=== PATIENT | female | born 1995 | race American Indian/Alaskan Native ===

== ENCOUNTER 2022-04-18 23:00 | Emergency (ER) | payer SELFPAY ==
[2022-04-19] MEDS ORDERED: diphenhydrAMINE 25 MG CAP PO ONE (00:24)
[2022-04-19 00:53] LABS: Basophils # (Auto) 0.1 K/mm3 (0.0-0.1); Basophils % (Auto) 0.6 % (0.0-1.8); Eosinophils # (Auto) 0.2 K/mm3 (0.0-0.4); Eosinophils % (Auto) 1.3 % (0.0-4.3); Hematocrit 35.6 % (30.3-42.9); Hemoglobin 11.7 gm/dl (10.1-14.3); Lymphocytes % (Auto) 17.1 % (13.4-35.0); Mean Corpuscular HGB Conc 33 % (30-34); Mean Corpuscular Volume 86 fl (79-97); Monocytes # (Auto) 0.9 K/mm3 (0.0-0.8); Monocytes % (Auto) 7.5 % (0.0-7.3); Platelet Count 299 K/mm3 (140-440); Red Blood Count 4.13 M/mm3 (3.65-5.03); Red Cell Distribution Width 13.2 % (13.2-15.2)
[2022-04-19 01:04] LABS: BUN/Creatinine Ratio 10; Blood Urea Nitrogen 10 mg/dL (7-17); Calcium 8.8 mg/dL (8.4-10.2); Hemolysis Index 3
[2022-04-19 01:58] LABS: Bacteria,Urine 1+ /HPF (Negative); Color,Urine Yellow (Yellow); Mucus,Urine 3+ /HPF
[2022-04-19 02:03] LABS: Ictotest,Urine Negative (Negative)
[2022-04-19 02:05] LABS: Amphetamine Screen,Urine Negative; Benzodiazepines Screen,Urine Negative; Cocaine Screen,Urine Negative; Methadone Screen,Urine Negative; Opiate Screen,Urine Negative
[2022-04-19 02:30] LABS: Cannabinoid Screen,Urine Positive
--- NOTE | 2022-04-19 06:08 | Emergency Department Report ---
ED General Adult HPI - General Chief complaint: Psych Stated complaint: MH PUI?: No Time Seen by Provider: 04/19/22 05:48 Source: patient Mode of arrival: Ambulatory Limitations: No Limitations - History of Present Illness Initial comments: This is a pleasant 26-year-old female with medical history of paranoid schizophrenia, bipolar; came in today with concerns of not sleeping for the past 2 days and also itching all over for the past 2 months. Patient also endorsed suicidal homicidal ideation but denies any current plan. Patient said that she is having visual also auditory hallucination but they are not giving her comma nds. Patient said that she is not taking her Risperdal as she is supposed to. Patient current denies any other symptoms denies fever chill night sweat dizziness blurred vision lightheadedness headache tinnitus ear pain runny nose sore throat loss of taste loss smell chest pain palpitation short breath cough abdominal pain nausea vomiting diarrhea constipation joint pain muscle pain new rash and heat or cold intolerance. - Related Data Allergies Allergy/AdvReac Type Severity Reaction Status Date / Time No Known Allergies Allergy Verified 04/19/22 00:23 ED Review of Systems ROS: Stated complaint: MH Other details as noted in HPI Comment: All other systems reviewed and negative Constitutional: no symptoms reported Eyes: as per HPI ENT: as per HPI Respiratory: no symptoms reported, see HPI Cardiovascular: as per HPI Endocrine: no symptoms reported, see HPI Gastrointestinal: as per HPI Genitourinary: as per HPI Musculoskeletal: as per HPI Skin: as per HPI Neurological: as per HPI Psychiatric: anxiety, auditory hallucinations, visual hallucinations, homicidal thoughts, suicidal thoughts Hematological/Lymphatic: as per HPI ED Past Medical Hx - Past Medical History Previous Medical History?: Yes Hx Psychiatric Treatment: Yes (PARANOIA SCHIZOPHRENIA, BIPOLAR) - Surgical History Past Surgical History?: Yes - Social History Smoking Status: Unknown if ever smoked ED Physical Exam - General Limitations: No Limitations General appearance: alert, in no apparent distress - Head Head exam: Present: atraumatic, normocephalic, normal inspection - Eye Eye exam: Present: normal appearance, PERRL, EOMI Pupils: Present: normal accommodation - ENT ENT exam: Present: normal exam, mucous membranes moist - Neck Neck exam: Present: normal inspection, full ROM - Respiratory Respiratory exam: Present: normal lung sounds bilaterally - Cardiovascular Cardiovascular Exam: Present: regular rate, normal rhythm, normal heart sounds - GI/Abdominal GI/Abdominal exam: Present: soft - Extremities Exam Extremities exam: Present: normal inspection, full ROM, normal capillary refill - Back Exam Back exam: Present: normal inspection, full ROM - Neurological Exam Neurological exam: Present: alert, oriented X3, CN II-XII intact - Psychiatric Psychiatric exam: Present: manic, homicidal ideation, suicidal ideation ED Course Vital Signs 04/19/22 00:17 Temperature 98.3 F Pulse Rate 104 H Respiratory 18 Rate Blood Pressure 121/75 O2 Sat by Pulse 99 Oximetry - Reevaluation(s) Reevaluation #1: 04/19/22 06:08 Patient is being medically clear and is ready for behavioral health evaluation and also for the recommendation. ED Medical Decision Making - Lab Data Result diagrams: 04/19/22 00:26 04/19/22 00:26 Critical care attestation.: If time is entered above; I have spent that time in minutes in the direct care of this critically ill patient, excluding procedure time. ED Disposition Clinical Impression: Tetrahydrocannabinol (THC) dependence, Suicidal ideations, Homicidal ideations, Paranoid ideation Condition: Stable
--- NOTE | 2022-04-19 14:11 | Consultation ---
History of Present Illness - Reason for Consult Consult date: 04/19/22 Reason for consult: mental health evaluation - History of Present Psychiatric Illness ED NOTE: This is a pleasant 26-year-old female with medical history of paranoid schizophrenia, bipolar; came in today with concerns of not sleeping for the past 2 days and also itching all over for the past 2 months. Patient also endorsed suicidal homicidal ideation but denies any current plan. Patient said that she is having visual also auditory hallucination but they are not giving her command s. Patient said that she is not taking her Risperdal as she is supposed to. Patient current denies any other symptoms denies fever chill night sweat dizziness blurred vision lightheadedness headache tinnitus ear pain runny nose sore throat loss of taste loss smell chest pain palpitation short breath cough abdominal pain nausea vomiting diarrhea constipation joint pain muscle pain new rash and heat or cold intolerance. Patient is a 26 year-old female with psychiatric history of paranoid schizophrenia and bipolar disorder. Psych consulted for mental health evaluation. The patient was seen today. Patient was alert and oriented x3 and cooperative throughout the interview. Patient reports she is here because "I have schizophrenia and I have been having auditory and visual hallucinations." Patient reports last taking risperidone 2 weeks ago and reports it "made me pass out." Patient reports endorses thought-broadcasting, hearing voices telling her to walk to [place], and "telecommunication" "with the [employer]." Patient reports visual hallucinations of "seeing people that I crossed in the past." Patient reports feeling "extremely sick," and reports feeling of "lightning rods in my uterus and anus." Patient reports 2 previous suicide attempts and reports "I wrote my will yesterday," but denies suicidal ideation recently. PAST PSYCHIATRIC HISTORY: Diagnoses: schizophrenia, bipolar disorder Suicide attempts or Self-harm behavior: 2x attempts Prior psychiatric hospitalizations: Yes Substance Abuse history: Marijuana, cigarettes Previous psychiatric medications tried: Risperidone, Olanzapine Outpatient treatment: Yes Family Psychiatric History: Mother- depression, Brother- PTSD SOCIAL HISTORY Marital Status: Single Living Arrangements: Homeless 3 years Employment Status: Unemployed Access to guns/weapons: Denies Education: Master's degree History of Abuse: Yes Legal History: Denies MENTAL STATUS EXAMINATION General Appearance and Behavior: Age appropriate, wearing appropriate clothes, cooperative, polite with questioning, good eye contact Cooperation: cooperative Psychomotor Behavior: Psychomotor normal Mood: "extremely sick," Affect and affective range: calm Thought Process: goal-oriented Thought Content: reality-based Speech: Normal volume, Regular rate and rhythm Suicidal Ideation: Denies Homicidal Ideation: Denies Hallucination: Yes Delusions: Yes Impulse Control: Poor Insight and Judgment: Poor Memory: Intact Attention: Attentive Orientation: Alert and oriented ASSESSMENT: Paranoid schizophrenia TREATMENT: - 1013 - Start Olanzapine 5 mg qhs - Start Melatonin 5 mg qhs - Haldol 5 mg IM q6h PRN for severe agitation Risks, benefits and alternatives of medications discussed with the patient, questions answered and consent obtained from patient: . The patient should be compliant with medications, not to use drugs, and not to drink alcohol. The patient understands that if suicidal ideas, homicidal ideas or any endangering feeling arise, the patient should seek assistance including, but not limited to crisis hotline, and emergency room. PSYCHOTHERAPY: Supportive psychotherapy provided MEDICAL: Per primary team DELIRIUM PRECAUTIONS: Please re-orient patient frequently, keep lights on during the day, and minimize benzodiazepines and opiates as these medications could worsen patient's confusion. TERMITE CONTROL SERVICER: Defer to primary DISPOSITION: Recommend acute inpatient psychiatric hospitalization at this time. FOLLOW-UP: Will follow Thank you for the consult. Please contact with any questions and/or concerns. Case staffed with Dr. Lucy Oro. Medications and Allergies Allergies Allergy/AdvReac Type Severity Reaction Status Date / Time No Known Allergies Allergy Verified 04/19/22 00:23 Mental Status Exam - Vital signs Last Vital Signs Temp 98.9 F 04/19/22 10:13 Pulse 82 04/19/22 10:13 Resp 18 04/19/22 10:13 BP 116/70 04/19/22 10:13 Pulse Ox 98 04/19/22 10:16 Results Result Diagrams: 04/19/22 00:26 04/19/22 00:26 Abnormal lab results 04/19/22 04/19/22 04/19/22 Range/Units 00:26 00:26 00:26 WBC 11.7 H (4.5-11.0) K/mm3 Hanson % (Auto) 7.5 H (0.0-7.3) % Hanson # (Auto) 0.9 H (0.0-0.8) K/mm3 Seg Neutrophils % 73.5 H (40.0-70.0) % Seg Neutrophils # 8.6 H (1.8-7.7) K/mm3 Salicylates < 0.3 L (2.8-20.0) mg/dL Acetaminophen 5.0 L (10.0-30.0) ug/mL All other labs normal.
[2022-04-19] MEDS ORDERED: HALOPERIDOL LACTATE 5 MG/1 ML INJ IM PRN (17:15)
[2022-04-19] MEDS ORDERED: MELATONIN 5 MG TAB PO PRN (17:16)
--- NOTE | 2022-04-20 10:57 | Progress Note ---
Subjective - Reason for Consult Consult date: 04/20/22 Reason for consult: mental health evaluation - Chief Complaint Chief complaint: 04/20: Prior to interview patient was speaking to security staff and was heard saying "I want to kill everyone. I don't want to talk with anybody." Patient was seen today. Patient was under a blanket, rocking back and forth. Patient would not respond to interview questions. Chart review shows patient has refused vital signs and blood draws. MENTAL STATUS EXAMINATION General Appearance and Behavior: Age appropriate, wearing appropriate clothes, poor eye contact, hostile Cooperation: Uncooperative Psychomotor Behavior: Agitated Mood: Unable to assess Affect and affective range: irritable Thought Process: unable to assess Thought Content: unable to assess Speech: Normal volume, Regular rate and rhythm Suicidal Ideation: Unable to assess Homicidal Ideation: Unable to assess Hallucination: Unable to assess Delusions: unable to assess Impulse Control: poor Insight and Judgment: unable to assess Memory: unable to assess Attention: unable to assess Orientation: Alert Diagnoses: Schizophrenia Treatment Plan 1013 ordered olanzapine 5 mg BID Risks, benefits and alternatives of medications discussed with the patient, questions answered and consent obtained from patient. PSYCHOTHERAPY: Supportive psychotherapy provided MEDICAL: Per primary team DELIRIUM PRECAUTIONS: Please re-orient patient frequently, keep lights on during the day, and minimize benzodiazepines and opiates as these medications could worsen patient's confusion. TRANSPORTATION SECURITY OFFICER: Defer to primary DISPOSITION: Recommend acute inpatient psychiatric hospitalization. FOLLOW-UP: Will follow Mental Status Exam - Vital signs Last Vital Signs Temp 98.4 F 04/20/22 02:39 Pulse 69 04/20/22 02:39 Resp 16 04/20/22 05:27 BP 107/61 04/20/22 02:39 Pulse Ox 100 04/20/22 05:27
--- NOTE | 2022-04-20 14:32 | Emergency Department Report ---
Blank Doc - Documentation Documentation: 26-year-old with a history of schizophrenia/psychosis threatening to kill people still being held in the emergency for further evaluation placement. Patient has no current medical issues and vital signs are stable.
--- NOTE | 2022-04-21 08:24 | Emergency Department Report ---
Blank Doc - Documentation Documentation: VSS. 26yo F w/schizophrenia, p/w Homicidal ideation, and is currently under a 1013 psychiatric hold. VSS. No overnight events reported. The pt is awaiting formal disposition by psychiatry.
--- NOTE | 2022-04-21 14:07 | Progress Note ---
Subjective - Reason for Consult Consult date: 04/21/22 Reason for consult: mental [facility] evaluation - Chief Complaint Chief complaint: 04/21: Chart review shows patient refused medication yesterday and received first dose of olanzapine 5 mg this AM. Patient was seen today. Patient was alert and cooperative throughout the interview. Patient reports "I think somebody is trying to hurt me," and denies feeling safe. Patient reports feeling a "perforating knife" stabbing her from "my vagina up to the top of my chest." Patient reports "I am filled with drugs and when they cut me they will sell them." Patient reports "I am ready to ." Patient reports having the gift of [employer] and is able to communicate with "people in the past, celebrities I've never met." Patient continues to endorse visual hallucinations of people from her past. Patient denies HI at this time. 04/20: Prior to interview patient was speaking to security staff and was heard saying "I want to kill everyone. I don't want to talk with anybody." Patient was seen today. Patient was under a blanket, rocking back and forth. Patient would not respond to interview questions. Chart review shows patient has refused vital signs and blood draws. MENTAL STATUS EXAMINATION General Appearance and Behavior: Age appropriate, wearing appropriate clothes, poor eye contact Cooperation: Cooperative Psychomotor Behavior: Slowed Mood: "I am ready to ," Affect and affective range: depressed, flat affect Thought Process: disorganized Thought Content: delusions, hallucinations, paranoia Speech: Low volume, slow rate and rhythm Suicidal Ideation: Yes Homicidal Ideation: Denies Hallucination: Yes AH command, visual Delusions: unable to assess Impulse Control: poor Insight and Judgment: poor Memory: Fair Attention: Distracted Orientation: Alert Diagnoses: Schizophrenia Treatment Plan Continue olanzapine 5 mg BID Risks, benefits and alternatives of medications discussed with the patient, questions answered and consent obtained from patient. PSYCHOTHERAPY: Supportive psychotherapy provided MEDICAL: Per primary team DELIRIUM PRECAUTIONS: Please re-orient patient frequently, keep lights on during the day, and minimize benzodiazepines and opiates as these medications could worsen patient's confusion. VENEER SAMPLE MAKER: Defer to primary DISPOSITION: Recommend acute inpatient psychiatric hospitalization. FOLLOW-UP: Will follow Case staffed with Dr. White Mental Status Exam - Vital signs Last Vital Signs Temp 98.4 F 04/21/22 08:47 Pulse 60 09/21/22 08:47 Resp 18 04/21/22 08:47 BP 120/68 04/21/22 08:47 Pulse Ox 100 04/21/22 08:49
--- NOTE | 2022-04-22 07:31 | Event Note ---
Date: 04/22/22 26-year-old female with history of schizophrenia presents with suicidal ideation. Patient had no acute overnight events per nursing report. Pt is under a 1013 hold. Vital signs stable. Pt continues to await formal disposition by psychiatry.
--- NOTE | 2022-04-22 13:44 | Progress Note ---
Subjective - Reason for Consult Consult date: 04/22/22 Reason for consult: mental health evaluation - Chief Complaint Chief complaint: 04/22: Patient was seen today. Patient was alert, oriented x2, guarded, and hostile throughout the interview. When asking orientation questions, patient would only nod her head and required prompting to answer. When patient was told she was being asked orientation questions, patient reports "why am I being oriented, what am I being inducted into?" Patient reports feeling "ready to go." Patient requests we return her blood and urine because "you're part of the [employer]," and "those were samples, I didn't give them to you." Patient reports "if I leave the hospital and I don't have my blood in those tubes and my urine in those cups I put them in, I'm going to [place]." Patient did not respond to further questioning. 04/21: Chart review shows patient refused medication yesterday and received first dose of olanzapine 5 mg this AM. Patient was seen today. Patient was alert and cooperative throughout the interview. Patient reports "I think somebody is trying to hurt me," and denies feeling safe. Patient reports feeling a "perforating knife" stabbing her from "my vagina up to the top of my chest." Patient reports "I am filled with drugs and when they cut me they will sell them." Patient reports "I am ready to ." Patient reports having the gift of [employer] and is able to communicate with "people in the past, celebrities I've never met." Patient continues to endorse visual hallucinations of people from her past. Patient denies HI at this time. 04/20: Prior to interview patient was speaking to security staff and was heard saying "I want to kill everyone. I don't want to talk with anybody." Patient was seen today. Patient was under a blanket, rocking back and forth. Patient would not respond to interview questions. Chart review shows patient has refused vital signs and blood draws. MENTAL STATUS EXAMINATION General Appearance and Behavior: Age appropriate, wearing appropriate clothes, good eye contact Cooperation: Uncooperative, guarded, Hostile Psychomotor Behavior: Within normal limits Mood: "ready to go," Affect and affective range: anxious, agitated Thought Process: disorganized Thought Content: delusional, paranoid Speech: Normal volume, regular rate and rhythm Suicidal Ideation: unable to assess Homicidal Ideation: unable to assess Hallucination: unable to assess Delusions: Yes, persecutory Impulse Control: Poor Insight and Judgment: Poor Memory: Fair Attention: Attentive Orientation: Sarah, oriented x2 Diagnoses: Schizophrenia Treatment Plan Continue olanzapine 5 mg BID Risks, benefits and alternatives of medications discussed with the patient, duane rod answered and consent obtained from patient. PSYCHOTHERAPY: Supportive psychotherapy provided MEDICAL: Per primary team DELIRIUM PRECAUTIONS: Please re-orient patient frequently, keep lights on during the day, and minimize benzodiazepines and opiates as these medications could worsen patient's confusion. SURGERY SPECIALIST: Defer to primary DISPOSITION: Recommend acute inpatient psychiatric hospitalization. FOLLOW-UP: Will follow Case staffed with Dr. White Mental Status Exam - Vital signs Last Vital Signs Temp 98.2 F 04/22/22 10:00 Pulse 60 04/22/22 10:00 Resp 16 04/22/22 10:00 BP 113/71 04/22/22 10:00 Pulse Ox 99 04/22/22 10:00
[2022-04-22 20:47] VITALS: BP 108/69
[2022-04-22] MEDS ORDERED: MELATONIN 5 MG TAB PO SCH (22:00)
== END 2022-04-22 22:15 ==
LOC: ED 23:00
DX: F12.20 Cannabis dependence, uncomplicated (principal); R45.851 Suicidal ideations; Z20.822 Contact with and (suspected) exposure to COVID-19; R45.850 Homicidal ideations; F60.0 Paranoid personality disorder; Z79.899 Other long term (current) drug therapy
CPT/HCPCS: 36415; 80048; 80307; 81001; 84703; 85025; 99285; U0003; 80320; G0480